=== PATIENT | female | born 1985 | race Caucasian/White ===

== ENCOUNTER → 2017-07-17 | Day surgery (SDC) | payer BC ==
--- NOTE | 2017-07-17 13:16 | RAD REPORT ---
EXAM DESCRIPTION: US - Guided FNA Non Breast - 07/17/2017 10:06 am CLINICAL HISTORY: Thyroid nodule ICD E04.1/Z80.8. COMPARISON: May 2017. TECHNIQUE: The risks, benefits and alternatives to the procedure were explained to the patient and i nformed consent obtained. The skin and subcutaneous tissues were anesthetized with lidocaine. Under sonographic guidance, six 2 5-gauge needle passes were obtained into the dominant nodule within the right lobe of the thyroid gla nd. The solid-appearing components of the nodule were entered. Specimens were given to pathology. The patient experienced no immediate complication. IMPRESSION: Fine-needle aspiration of a nodule within the right lobe of the thyroid gland.
== END ==
LOC: FNA 09:23
PROVIDERS: ATTEND Otolaryngology
PROC: 0G9H3ZX Drainage of Right Thyroid Gland Lobe, Percutaneous Approach, Diagnostic (ICD-10-PCS; principal; 2017-07-17)
DX: E04.1 Nontoxic single thyroid nodule (principal); Z80.8 Family history of malignant neoplasm of other organs or systems
CPT/HCPCS: 76942; 88162

== ENCOUNTER 2017-08-22 07:26 | Day surgery (SDC) | payer BC ==
[2017-08-21 13:03] LABS: Absolute Lymphocytes (CBC) 1.9 K/uL (0.7-4.9); Absolute Monocytes 0.5 K/uL (0.1-1.3); Basophils % 0.3 % (0-1.3); Eosinophils % 1.3 % (0-4.4); Hematocrit 39.9 % (36.0-45.0); Lymphocytes % 22.7 % (15.3-44.8); MCH 29.8 pg (27.0-35.0); MPV 9.7 fL (7.6-11.3); Monocytes % 5.6 % (3.3-12.3); RBC Red Blood Cell Count 4.48 M/uL (3.86-4.86)
[2017-08-21 13:22] LABS: Protein, Total 6.9 g/dL (6.0-8.3)
--- OUTSIDE RECORDS SUMMARY | 2017-08-22 07:29 | XMS REPORT ---
:1985 [facility] Address [address] [place] [address] [address] [place] [address] Care Team Providers Name Role Phone LAURIE HEART JR Primary Care Provider Unavailable LAURIE HEART JR, M.D. Unavailable Unavailable Problems This patient has no known problems. Allergies, Adverse Reactions, Alerts This patient has no known allergies or adverse reactions. Medications This patient has no known medications. Encounters Start End Encounter Admission Attending Care Care Encounter Date/Time Date/Time Type Type Clinicians Facility Department ID 2017-07-18 2017-07-18 Outpatient C [facility] [id number] 08:06:00 08:06:00 Results Test Description Test Time Test Comments Text Results Atomic Results Result Comments BHCG, Urine, Qualitative 2017-07-28 15:30:00 Test Item Value Reference Range Comments Preg Qual [Ur] (test code=HUHCG) Negative Negative Free T4 (Free Thyroxine)2017-07-18 19:40:00 Test Item Value Reference Range Comments T4, Free (test code=FT4) 1.46 ng/dL 0.930-1.700 Triiodothyronine Free (Free T3)2017-07-18 19:40:00 Test Item Value Reference Range Comments T3, Free (test code=FT3) 2.73 pg/mL 2.000-4.400 Thyroid Stimulating Hormone (TSH)2017-07-18 19:40:00 Test Item Value Reference Range Comments TSH (test code=TSH) 1.12 mIU/mL 0.270-4.200 BHCG, Serum, [id number] 16:05:00 Test Item Value Reference Range Comments Preg Qual [Se] (test code=BSHCG) Negative Negative CBC with [id number] 15:32:00 Test Item Value Reference Range Comments WBC (test code=WBC) 16.8 K/cumm 4.4-10.5 RBC (test code=RBC) 4.55 M/cumm 3.75-5.20 Hemoglobin (test code=HGB) 13.7 gm/dL 12.2-14.8 Hematocrit (test code=HCT) 40.3 % 36.5-44.4 MCV (test code=MCV) 88.7 fL 80-100 MCH (test code=MCH) 30.2 pg 27.0-32.5 MCHC (test code=MCHC) 34.1 g/dL 32.0-37.5 RDW (test code=RDW) 12.8 % 11.5-14.5 Platelet Count (test code=PLTCT) 345 K/cumm 140-440 MPV (test code=MPV) 10.0 fL Diff Method (test code=DIFFM) Auto Neutrophil (test code=NEUT) 84.9 % 36-70 Lymphocyte (test code=LYMPH) 10.6 % 12-44 Monocyte (test code=MONO) 4.0 % 0-11 Eosinophil (test code=EOS) 0.5 % 0-7 Basophil (test code=BASO) 0.2 % 0-2 Neutro Abs (test code=ANEUT) 14.3 K/cumm 1.6-7.4 Lymph Abs (test code=ALYMPH) 1.8 K/cumm 0.5-4.6 Weld Abs (test code=AMONO) 0.7 K/cumm 0.0-1.2 Eos Abs (test code=AEOS) 0.08 K/cumm 0.00-0.74 Baso Abs (test code=ABASO) 0.0 K/cumm 0.00-0.21
[2017-08-22] MEDS ORDERED: Ringers Lactate 1,000 ML IV ONE (07:37)
[2017-08-22] MEDS ORDERED: LIDOCAINE 1% MPF 5 ML VIAL ONE (08:45)
[2017-08-22] MEDS ORDERED: MIDAZOLAM HCL 2 MG/2 ML INJ ONE (08:45)
[2017-08-22] MEDS ORDERED: ROCURONIUM 50 MG/5 ML VIAL IV ONE (08:45)
[2017-08-22] MEDS ORDERED: FENTANYL CITR 250 MCG/5 ML ONE (08:45)
[2017-08-22] MEDS ORDERED: PROPOFOL 200 MG/20 ML VIAL IV ONE (08:45)
[2017-08-22] MEDS: Ringers Lactate 1,000 ML IV ONE ×2 (09:00→09:24)
[2017-08-22] MEDS: LIDOCAINE 1% W/EPI 1:100,000 MDV 50 ML VIAL ONE ×2 (09:13→13:00)
[2017-08-22] MEDS ORDERED: ONDANSETRON HCL 40 MG/20 ML VIAL ONE (09:24)
[2017-08-22] MEDS ORDERED: KETOROLAC 30 MG/ML INJ ONE (10:26)
[2017-08-22] MEDS ORDERED: Mastisol Adhesive Liq ONE (10:28)
[2017-08-22] MEDS: MEPERIDINE HCL 50 MG/ML AMP ONE ×2 (10:53→10:58)
[2017-08-22] MEDS ORDERED: ONDANSETRON 4 MG/2 ML VIAL ONE (11:01)
--- NOTE | 2017-08-22 11:34 | P.BOP ---
Preoperative diagnosis: right thyroid nodule Postoperative diagnosis: same Primary procedure: right thyroid lobectomy Assistant Customer Service Manager: Radha Han Estimated blood loss: 15ml Specimen: R thyroid - frozen section benign Anesthesia: General Complications: None Transferred to: Recovery Room Condition: Good
--- NOTE | 2017-08-22 21:39 | OP ---
Surgeon: Emely Vides MD Production Specialist: Radha Pena. Preoperative Diagnosis: Solitary thyroid nodule. Postoperative Diagnosis: Solitary thyroid nodule. Procedure: Right thyroidectomy. Indication For Procedure: Neela is a 32-year-old with a clinical exam demonstrating a thyroid nodul e. She underwent an ultrasound which showed a mixed cystic solid nodule with dystrophic calcificatio ns of 12 mm. She also has a family history of papillary thyroid cancer in her mother. She underwent an ultrasound-guided fine-needle aspiration, which was nondiagnostic due to paucity of thyroid cells and the risks, benefits, and alternatives were discussed with the patient, who desired surgery due t o her family history. Drains: None. Specimens: Right thyroid lobe. Procedure In Detail: The patient was brought to the operating room. She was placed under general an esthesia via oral endotracheal tube. A shoulder roll was placed and the neck was extended. The neck was cleaned with alcohol and the planned incision site was injected with 3.5 mL of 1% lidocaine with epinephrine. The neck was then prepped with Betadine and draped in the standard fashion for thyroid surgery. A 4-cm incision was made horizontally in the lower neck and the subcutaneous tissues were divided with Bovie electrocautery. The platysma muscle was identified in the lateral aspects of the incision and a subplatysmal flap was developed superiorly and inferiorly. The strap muscles were devi ntified in the midline and . The thyroid isthmus was encountered. The strap muscles were b luntly elevated off the right thyroid lobe. The inferior pole was identified and soft tissue attachm ents and fascial attachments were carefully divided using blunt dissection as well as ligature cauter ization for small vessels. The inferior pole was easily mobilized and dissection was carried out roula ng the lateral border toward the superior pole. The superior pole was identified and carefully disse cted. The vascular attachments including the superior thyroid artery were ligated using the LigaSure cauterization. The upper portion of the thyroid seemed to plunge more deeply into the neck and was carefully and bluntly dissected. The isthmus was then divided and carefully elevated off the anterio r tracheal wall, leaving the thyroid attached in the area of the ligament of Cabrera. Meticulous disse ction was carried out in this area in order to identify and preserve the recurrent laryngeal nerve. During dissection from a lateral aspect, tissue suspicious for superior parathyroid was identified an d carefully dissected off the surface of the thyroid gland and was left in situ. The final soft tiss ue attachments were carefully divided and the specimen was sent to pathology for frozen section allie sis. The neck was packed with a large Ray-Lopez until pathology results were available. In consultati on with the pathologist, there were cystic portions as well as benign thyroid tissue noted within the nodule. There were no characteristic findings for papillary thyroid cancer on the frozen section an alysis. On return to the operating room, the packing was removed and the neck was irrigated and care ful examination revealed no evidence of oozing or bleeding. Due to the small defect, the decision wa s made to forego ANTONIO drain placement. The strap muscles were approximated with a single Vicryl suture in the midline and the wound was closed in a layered fashion using Vicryl sutures and the skin was c losed in a subcuticular fashion using 5-0 Monocryl. Mastisol and Steri-Strips were applied to the in cision and the patient was returned to care of Anesthesia for awakening and extubation in the operati ng room, which proceeded without difficulty. Complications: None. Disposition: The patient will be discharged home later today in the care of her family and follow up with Dr. Vides in 10 days for wound evaluation and discussion of final pathology results. ISMAEL Voice ID: [id number] Report ID: [id number]
== END 2017-08-22 12:10 | disposition home or self-care (01) ==
LOC: OR 07:26
PROVIDERS: ATTEND Otolaryngology
PROC: 0GTH0ZZ Resection of Right Thyroid Gland Lobe, Open Approach (ICD-10-PCS; principal; 2017-08-22 09:00)
DX: E04.1 Nontoxic single thyroid nodule (principal); Z80.8 Family history of malignant neoplasm of other organs or systems; Z82.3 Family history of stroke; Z83.3 Family history of diabetes mellitus; Z82.49 Family history of ischemic heart disease and other diseases of the circulatory system
CPT/HCPCS: 36415; 82310; 84155; 84703; 85025; 88305; 88307; 88331; 88333; J2175; J2250; J2405